=== PATIENT | female | born 1970 | race Caucasian/White ===

== ENCOUNTER 2019-08-01 07:36 | Emergency (ER) | payer OTHER ==
--- NOTE | 2019-08-01 08:22 | EDM.PDOC ---
ED HPI GENERAL MEDICAL PROBLEM - General Chief Complaint: Headache Stated Complaint: MIGRAINE Time Seen by Provider: 08/01/19 08:15 Source of Information: Reports: Patient History Limitations: Reports: No Limitations - History of Present Illness INITIAL COMMENTS - FREE TEXT/NARRATIVE: Patient presents for evaluation of right-sided migraine headache pain along with nausea and vomiting which began approximately 24 hours ago. It was fairly rapid in onset. Normally she will take 800 mg of ibuprofen and that will help knock things down but the nausea and vomiting set in and she was unable to keep medications, fluids, food down. She has continued to have vomiting overnight into today and feels dehydrated. The headache pain is in the right occipital parietal temporal region and is throbbing in nature. She is photophobic and phonophobic. There is no position of comfort. It is been a number of years since she's had a headache this bad. She wonders if maybe she is "coming down with something" but temperature and other vital signs are okay. Onset Date: 07/31/19 Location: Reports: Head Quality: Reports: Throbbing Severity: Severe Improves with: Reports: None Worsens with: Reports: Movement Headache Pain Score (Numeric/FACES): 10 - Related Data Allergies Allergy/AdvReac Type Severity Reaction Status Date / Time No Known Allergies Allergy Verified 08/01/19 08:09 Home Meds: Home Meds Lipitor 08/01/19 [History] [place] Carbonate 600 mg PO DAILY 08/01/19 [History] Verapamil 08/01/19 [History] ED ROS GENERAL - Review of Systems Review Of Systems: See Below Constitutional: Denies: Fever, Chills HEENT: Reports: Other (Photophobia and phonophobia.) Respiratory: Reports: No Symptoms Cardiovascular: Reports: No Symptoms GI/Abdominal: Reports: Nausea, Vomiting. Denies: Diarrhea : Reports: No Symptoms Musculoskeletal: Denies: Neck Pain Neurological: Reports: Headache (Right sided headache as described.) Psychiatric: Reports: Other (There are multiple family unspecified stressors at this time.) - Physical Exam Exam: See Below Text/Narrative:: This is an uncomfortable looking woman in the position on the bed in room 6. Room lights are completely off. Exam Limited By: No Limitations General Appearance: Alert, Severe Distress Cardiovascular: Regular Rate, Rhythm Neuro Exam (Abbreviated): Alert, Oriented, CN II-XII Intact, Normal Cognition Course - Vital Signs Last Recorded V/S: Last Vital Signs Temp 35.6 C L 08/01/19 08:02 Pulse 76 08/01/19 08:02 Resp 16 08/01/19 08:02 BP 135/95 H 08/01/19 08:02 Pulse Ox 99 08/01/19 08:02 - Orders/Labs/Meds Orders: Active Orders 24 hr Category Date Time Status Sodium Chloride 0.9% [Saline Flush] Med 08/01/19 08:30 Ordered 10 ml FLUSH ASDIRECTED PRN Saline Lock Insert [OM.PC] Routine Oth 08/01/19 08:30 Ordered Medication Orders Sodium Chloride (Saline Flush) 10 ml FLUSH ASDIRECTED PRN PRN Reason: Keep Vein Open Last Admin: 08/01/19 09:07 Dose: 10 ml Meds: Medications Generic Name Dose Route Start Last Admin Trade Name Freq PRN Reason Stop Dose Admin Sodium Chloride 10 ml 08/01/19 08:30 08/01/19 09:07 Saline Flush FLUSH 10 ml ASDIRECTED PRN Administration Keep Vein Open Discontinued Medications Generic Name Dose Route Start Last Admin Trade Name Freq PRN Reason Stop Dose Admin Diphenhydramine HCl 25 mg 08/01/19 08:32 08/01/19 08:48 Benadryl IVPUSH 08/01/19 08:33 25 mg ONETIME ONE Administration Sodium Chloride 1,000 mls @ 999 mls/hr 08/01/19 08:30 08/01/19 08:46 Normal Saline IV 08/01/19 09:30 999 mls/hr .BOLUS ONE Administration Ketorolac Tromethamine 30 mg 08/01/19 08:31 08/01/19 08:47 Toradol IVPUSH 08/01/19 08:32 30 mg ONETIME ONE Administration Prochlorperazine Edisylate 10 mg 08/01/19 08:32 08/01/19 08:49 Compazine IVPUSH 08/01/19 08:33 10 mg ONETIME ONE Administration - Re-Assessments/Exams Free Text/Narrative Re-Assessment/Exam: 08/01/19 08:38 Patient will be given ketorolac 30 mg, prochlorperazine 10 mg, diphenhydramine 25 mg all as IV doses. 1 L of normal saline will be run in by rapid infusion. 08/01/19 10:02 Recheck at 0951 hours finds the patient headache pain free and also is no longer nauseated or vomiting. We discussed possibly sending her with a prescription for one of the rectal antiemetics but she declined. Her most successful way of treating headaches when they arrive has been early use of ibuprofen 800 mg. She previously had used Imitrex injections but states that they didn't help much. She should continue verapamil and her other maintenance medications. Return to ER if feeling worse in anyway again. Departure - Departure Time of Disposition: 10:00 Disposition: Home, Self-Care 01 Clinical Impression: Migraine Nausea and vomiting Qualifiers: Vomiting type: unspecified Vomiting Intractability: unspecified Qualified Code( s): R11.2 - Nausea with vomiting, unspecified - Discharge Information *PRESCRIPTION DRUG MONITORING PROGRAM REVIEWED*: Not Applicable *COPY OF PRESCRIPTION DRUG MONITORING REPORT IN PATIENT RADHA: Not Applicable Referrals: PCP,None [Primary Care Provider] - Forms: ED Department Discharge Additional Instructions: Continue current medications especially the verapamil. Gradually increase food intake today. Increase your hydration beyond what he normally would drink in a day. If headache symptoms return, use 800 mg of ibuprofen as has been your previous custom. Return to ER if headache and/or nausea and vomiting symptoms return. Sepsis Event Note - Evaluation Sepsis Screening Result: No Definite Risk - Focused Exam Vital Signs: Vital Signs Temp Pulse Resp BP Pulse Ox 08/01/19 08:02 35.6 C L 76 16 135/95 H 99 Date Exam was Performed: 08/01/19 Time Exam was Performed: 10:02 - My Orders Last 24 Hours: My Active Orders 08/01/19 08:30 Sodium Chloride 0.9% [Saline Flush] 10 ml FLUSH ASDIRECTED PRN Saline Lock Insert [OM.PC] Routine - Assessment/Plan Last 24 Hours: My Active Orders 08/01/19 08:30 Sodium Chloride 0.9% [Saline Flush] 10 ml FLUSH ASDIRECTED PRN Saline Lock Insert [OM.PC] Routine
[2019-08-01] MEDS ORDERED: Sodium Chloride 0.9% 1,000 ML IV ONE (08:30)
[2019-08-01] MEDS ORDERED: Sodium Chloride 0.9% 10 ML Syringe FLUSH PRN (08:30)
[2019-08-01] MEDS ORDERED: Ketorolac 30 MG/ML SDV IVPUSH ONE (08:31)
[2019-08-01] MEDS ORDERED: Prochlorperazine 10 MG/2 ML SDV IVPUSH ONE (08:32)
[2019-08-01] MEDS ORDERED: diphenhydrAMINE 50 MG/ML SDV IVPUSH ONE (08:32)
== END 2019-08-01 10:19 | disposition home or self-care (01) ==
LOC: JP.ED 07:36
DX: G43.909 Migraine, unspecified, not intractable, without status migrainosus (principal)
CPT/HCPCS: 96361; 96374; 96375; 99284-25; J0780; J1200; J1885; J7030